=== PATIENT | female | born 1980 | race Caucasian/White ===

== ENCOUNTER 2017-06-20 08:19 | Inpatient (IN) ==
[2017-06-15 16:24] LABS: Appearance,Urine CLEAR; Bacteria,Urine 0 /hpf (0); Bilirubin,Urine NEG (NEG); Color,Urine YELLOW; Glucose,Urine (UA) NEGATIVE (NEG); Leukocyte Esterase,Urine NEG /uL (NEG); Mucus,Urine FEW /hpf (0); Nitrate,Urine NEG (NEG); Protein,Urine NEG (NEG); Specific Gravity,Urine 1.018 (1.000-1.035); Urine Blood 0.03 mg/dL (<0.03); Urine RBC 1 /hpf (0-1); Urine Squamous Epithelial Cell 1 /hpf (0-4); Urine WBC 1 /hpf (0-4)
[2017-06-15 18:01] LABS: Blood Urea Nitrogen 13 mg/dl (6-20)
[2017-06-15 18:09] LABS: Basophils # (Auto) 0.1 K/mcL (0.0-0.3); Basophils % (Auto) 0.7 % (0.0-2.0); Eosinophils # (Auto) 0.4 K/mcL (0.0-0.7); Eosinophils % (Auto) 4.3 % (0.0-7.0); Granulocytes % (Auto) 53.2 % (38.0-78.0); Lymphocytes # (Auto) 3.3 K/mcL (1.5-4.8); Mean Cell Volume 95.1 fL (80.0-100.0); Mean Corpuscular HGB Conc 33.6 g/dL (31.0-36.0); Mean Corpuscular Hemoglobin 31.9 pg (26.0-34.0); Monocytes # (Auto) 0.4 K/mcL (0.1-0.9); Monocytes % (Auto) 4.8 % (1.0-12.0); Platelet Count 275 K/mcL (140-440); RBC 4.43 M/mcL (4.00-5.20); Red Cell Distribution Width 13.1 % (11.5-14.5)
[~2017-06-20 08:19] MED LIST: ACETAMINOPHEN 500 MG TABLET PO SCH; CLINDAMYCIN 900 MG in DEXTROSE 5% IN WATER 50 ML IV SCH; KETOROLAC 30 MG, ROPIVACAINE HCL/PF 49.5 ML, EPINEPHrine 0.5 MG, 0.9 % SODIUM CHLORIDE ... IJ SCH; PREGABALIN 75 MG CAPSULE PO SCH; oxyCODONE 10 MG TAB.ER.12H PO SCH
[2017-06-20] MEDS ORDERED: ACETAMINOPHEN 500 MG TABLET PO ONE (09:24)
[2017-06-20] MEDS ORDERED: TRANEXAMIC ACID 1,000 MG/10 ML VIAL IV ONE ×2 (11:50→13:13)
[2017-06-20] MEDS ORDERED: MIDAZOLAM 5 MG/5 ML VIAL IV ONE (11:50)
[2017-06-20] MEDS ORDERED: PHENYLEPHRINE 10 MG/ML VIAL IV ONE (11:50)
[2017-06-20] MEDS ORDERED: ONDANSETRON 4 MG/2 ML VIAL IV ONE (11:50)
[2017-06-20] MEDS ORDERED: PROPOFOL 200 MG/20 ML VIAL IV ONE (11:50)
[2017-06-20] MEDS ORDERED: GLYCOPYRROLATE 0.2 MG/ML VIAL IV ONE (11:50)
[2017-06-20] MEDS ORDERED: LIDOCAINE HCL/PF 100 MG/5 ML SYRINGE IV ONE (11:50)
[2017-06-20] MEDS ORDERED: KETAMINE 100 MG/ML ML IV ONE (11:50)
[2017-06-20] MEDS ORDERED: GENTAMICIN SULFATE 800 MG/20 ML VIAL IR ONE (12:23)
[2017-06-20] MEDS ORDERED: ONDANSETRON 4 MG/2 ML VIAL IV PRN ×2 (12:53→13:13)
[2017-06-20] MEDS ORDERED: fentaNYL 100 MCG/2 ML VIAL IV PRN (12:53)
[2017-06-20] MEDS ORDERED: METHOCARBAMOL 1,000 MG/10 ML VIAL IV PRN (12:53)
[2017-06-20] MEDS ORDERED: diphenhydrAMINE 50 MG/ML VIAL IV PRN (12:53)
[2017-06-20] MEDS ORDERED: PROMETHAZINE 25 MG/ML VIAL IV PRN (12:53)
[2017-06-20] MEDS ORDERED: MEPERIDINE 25 MG/ML SYRINGE IV PRN (12:53)
[2017-06-20] MEDS ORDERED: IPRATROPIUM/ALBUTEROL 3 ML AMPUL.NEB NEB PRN (12:53)
[2017-06-20] MEDS ORDERED: LACTATED RINGERS 1,000 ML IV SCH (13:00)
[2017-06-20] MEDS ORDERED: TEMAZEPAM 15 MG CAPSULE PO PRN (13:13)
[2017-06-20] MEDS ORDERED: BISACODYL 10 MG SUPP.RECT PR PRN (13:13)
[2017-06-20] MEDS ORDERED: MAGNESIUM HYDROXIDE 30 ML ORAL.SUSP PO PRN (13:13)
[2017-06-20] MEDS ORDERED: BENZOCAINE/MENTHOL 1 LOZENGE PO PRN (13:13)
[2017-06-20] MEDS ORDERED: POLYETHYLENE GLYCOL 3350 17 GM PACKET PO PRN (13:13)
[2017-06-20] MEDS ORDERED: ACETAMINOPHEN 325 MG TABLET PO PRN (13:13)
[2017-06-20] MEDS ORDERED: FLEETS ADULT ENEMA PR PRN (13:13)
--- NOTE | 2017-06-20 13:13 | Brief Operative Note ---
Date of procedure: 06/20/17 Pre-op diagnosis: left hip djd Post-op diagnosis: same Procedure: left arthur Grafts/Implants: Yes Anesthesia: GETA Complications: none Complications Description: 06/20/17 13:13 none Surgeon: Guy Hilton Circus Agent: Winston Hernandez Estimated blood loss (cc): 25 Specimens Removed/Pathology: none sent Condition: stable Disposition: PACU
[2017-06-20] MEDS ORDERED: ceFAZolin 1 GM VIAL IV SCH (13:15)
--- NOTE | 2017-06-20 14:21 | Operative Note ---
DATE OF OPERATION: 06/20/2017 PREOPERATIVE DIAGNOSIS: Very pleasant female with left hip pain, chronic. POSTOPERATIVE DIAGNOSIS: Very pleasant female with left hip pain, chronic, as well as degenerative arthritis. PROCEDURE: Left total hip arthroplasty with cementless components. SURGEON: Guy Hilton MD DRAGSAW OPERATOR: Bud Hernandez PA-C. ANESTHESIA: General LMA anesthesia. COMPLICATIONS: None. ESTIMATED BLOOD LOSS: 25 mL IMPLANTS: Cementless 50 mm cup with a poly liner for a 36 mm head as well as size 3 stem, cementless. DESCRIPTION OF PROCEDURE: The patient was brought to the operating room and put to sleep with general LMA anesthesia. Once asleep, the patient had the left hip sterilely prepped and draped in the usual sterile fashion. The left leg was confirmed as the operative site by timeout and initials. Preop antibiotics and tranexamic acid had been given. Once done, we placed Ioban over the skin and then made a superior posterior approach to the hip. Releasing the capsule superiorly, I dislocated the hip without difficulty and then made our neck cut at 32 mm from the center of hip rotation. Once done, we then subluxed the hip anteriorly, reamed up to the size of 50, implanted a 50 cup with 1 central screw. Excellent purchase was achieved. We irrigated thoroughly and then broached up on the femur, size 3 stem. We took an x-ray intraoperatively. The left leg was slightly longer than the right. We countersunk the stem to the lateral calcar. Once positioned, we then placed a 2.5 plus neck length which gave stability. This was a 36 mm head. We implanted a size 3 stem, a size 36 mm with a 2.5 neck length. This was reduced without difficulty. We irrigated thoroughly and repaired the capsule posteriorly. Patient tolerated this well. We closed the fascial layer with #1 Stratafix and closed the skin with 2-0 Vicryl and alessio. The patient tolerated this well without complication. RBH:suzanna Job ID: [id number] Doc ID: [id number] Guy Hilton MD
[2017-06-20] MEDS: 0.45 % SODIUM CHLORIDE 1,000 ML IV SCH ×2 (14:32→21:21)
[2017-06-20] MEDS: 0.9 % SODIUM CHLORIDE 10 ML SYRINGE IV SCH ×2 (14:32→20:47)
--- NOTE | 2017-06-20 14:42 | XRay Report ---
HISTORY: Reason for Exam:Post-Op Total Hip FINDINGS: There is a well-positioned left total hip prosthesis. No fracture is present and there are no abnormal soft tissue calcifications. Incidentally noted is a T-shaped IUD in the midline of the pelvis. IMPRESSION: Well-positioned left hip prosthesis Interpreted and Authenticated by: Varghese Jensen 06/20/17
[2017-06-20] MEDS: oxyCODONE/APAP 5/325MG TABLET PO PRN ×2 (16:27→20:48)
[2017-06-20] MEDS: HYDROmorphone 2 MG/ML SYRINGE IV PRN (17:01)
[2017-06-20] MEDS: CLINDAMYCIN 900 MG in 0.9 % SODIUM CHLORIDE 50 ML IV SCH (19:32)
[2017-06-20] MEDS: DOCUSATE SODIUM 100 MG CAPSULE PO SCH (20:46)
[2017-06-20] MEDS: ASPIRIN 325 MG ENTERIC COATED TABLET PO SCH (20:50)
[2017-06-20] MEDS ORDERED: SENNOSIDES 1 TABLET PO SCH (21:00)
[2017-06-21] MEDS: oxyCODONE/APAP 5/325MG TABLET PO PRN ×4 (00:55→13:00)
[2017-06-21] MEDS: 0.45 % SODIUM CHLORIDE 1,000 ML IV SCH ×2 (00:57→11:56)
[2017-06-21] MEDS: HYDROmorphone 2 MG/ML SYRINGE IV PRN (01:17)
[2017-06-21] MEDS: CLINDAMYCIN 900 MG in 0.9 % SODIUM CHLORIDE 50 ML IV SCH (03:12)
[2017-06-21] MEDS: 0.9 % SODIUM CHLORIDE 10 ML SYRINGE IV SCH (06:24)
--- NOTE | 2017-06-21 07:06 | Discharge Summary ---
Ortho Discharge - [facility] - Patient Instructions Diet: Regular Diet Activity: activity as tolerated, weight bearing as tolerated Total Hip Protocol: Follow activity instructions as provided by Physical Therapy. Dressing Care: Jaylon Ag - leave on for 5 days - Follow Up Plan Follow Up Appointments: Guy Hilton MD [Physician] - 07/04/17 10:00 am Disposition: Home, Self-Care Prognosis: Good Rehab Potential: Good I certify that the patient requires SNF services: No Overall status at discharge: patient is progressing back to baseline - Orders For Discharge Additional Discharge Orders: Physical Therapy at Discharge - [facility] Location: Determined By Patient Toilet Riser Discharge Order Location: Determined By Patient Walker Location: Determined By Patient
[2017-06-21] MEDS: ASPIRIN 325 MG ENTERIC COATED TABLET PO SCH (08:52)
[2017-06-21] MEDS: DOCUSATE SODIUM 100 MG CAPSULE PO SCH (08:52)
[2017-06-21] MEDS ORDERED: MULTIVIT,THER IRON,CA,FA & MIN 1 TABLET PO SCH (09:00)
[2017-06-21] MEDS ORDERED: FLU VACC QS2017-18 36MOS UP/PF 60 MCG/0.5 ML SYRINGE IM ONE (10:00)
== END 2017-06-21 13:10 | disposition home or self-care (01) | DRG 470 ==
LOC: MEDSUR 08:19
PROVIDERS: ADMIT Orthopaedic Surgery; ATTEND Orthopaedic Surgery